=== PATIENT | female | born 1995 | race Caucasian/White ===

== ENCOUNTER 2016-12-28 10:46 | Emergency (ER) | payer BC ==
[~2016-12-28] VITALS: Ht 154.9 cm; Wt 66.3 kg
[2016-12-28 10:51] VITALS: TEMP 37.1; Ht 154.9 cm; Wt 66.3 kg
[2016-12-28] MEDS ORDERED: PRENTAB26 PO (11:18)
[2016-12-28] MEDS ORDERED: SODIUM CHLORIDE 0.9% 1000ML 1,000 ML IV STA (11:30)
--- NOTE | 2016-12-28 11:36 | EMERGENCY ROOM VISIT NOTE ---
History First contact with patient: 11:21 Chief Complaint: CONGESTION Stated Complaint: DIZZINESS,SWEATING,TROUBLE BREATHING,SINUS INFECTI Nursing Triage Summary: Sick since wednesday. 18 weeks . Sore throat, dry cough, chest feels heavy, "my head feels like I slammed it against the wall. I feel like Im going to pass out if I walk around too much." History of Present Illness The patient is a 21 year old female who presents to the Emergency Room with complaints of flulike symptoms. The patient's symptoms started 5 days ago. She initially had a sore throat. She has since developed headache, nonproductive cough, arthralgia, myalgia, ear pain, sinus congestion and minimal diarrhea. The patient rates her discomfort an 8/10. She was seen at urgent care the day before her symptoms started for an ear infection and was started on amoxicillin. She states that she has progressively felt worse every day. The patient's sister was recently diagnosed with pneumonia. The patient is currently 18 weeks . She is not certain if she has had a fever. She denies any neck pain or neck stiffness. She denies any chest pain or shortness of breath. She denies any abdominal pain, nausea or vomiting. She denies any urinary symptoms. She denies any vaginal bleeding. Review of Systems A 10 system review of systems was completed with positives and pertinent negatives listed in the HPI. Past Medical/Surgical History Patient denies Social History Smoking Status: Never Smoker Housing Status: lives with family Occupation Status: [employer] student Current/Historical Medications Scheduled Azithromycin (Zithromax Z-Fabrizio), 1 PKT PO UD Multivit/Min/Iron/Fol Ac/Pren ( Vitamin), 1 TAB PO DAILY Allergies Coded Allergies: No Known Allergies (Unverified , 12/28/16) Physical Exam Vital Signs Date Time Temp Pulse Resp B/P Pulse Ox O2 Delivery O2 Flow Rate FiO2 12/28/16 12:41 90 20 115/69 98 12/28/16 12:24 90 20 115/69 98 Room Air 12/28/16 10:54 98 Room Air 12/28/16 10:51 37.1 109 18 113/68 97 Room Air Physical Exam VITALS: Vitals are noted on the nurse's note and reviewed by myself. Vital signs stable. The patient is afebrile. GENERAL: This is a 21-year-old female, in no acute distress, nondiaphoretic, well-developed well-nourished. SKIN: The skin was without rashes, erythema, edema, or bruising. There is no tenting of the skin. Capillary reflex less than 2 seconds. HEAD: Normocephalic atraumatic. EARS: External auditory canals clear, tympanic membranes pearly bah without erythema or effusion bilaterally. EYES: Pupils equal round and reactive to light and accommodation. Conjunctivae without injection, sclerae without icterus. Extraocular movements intact. NOSE: There is clear discharge and mild inflammation of the turbinates. No sinus tenderness. MOUTH: Mucous membranes moist. Tonsils are not enlarged. Mild posterior pharyngeal erythema. Uvula midline. Airway patent. Tongue does not deviate. NECK: Supple without nuchal rigidity. No lymphadenopathy. No thyromegaly. Cervical spine is nontender. No JVD. HEART: Regular rate and rhythm without murmurs gallops or rubs. LUNGS: Clear to auscultation bilaterally without wheezes, rales or rhonchi. No retractions or accessory muscle use. ABDOMEN: Positive bowel sounds x 4. Soft, nontender, without masses or organomegaly. MUSCULOSKELETAL: No muscle atrophy, erythema, or edema noted. Full range of motion in all extremities. Normal gait. Strength 5/5 throughout. NEURO: Patient was alert and oriented to person place and time. No focal neurological deficits. Medical Decision & Procedures ER Provider Diagnostic Interpretation: [~ rep ct add3]] CHEST 2 VIEWS ROUTINE CLINICAL HISTORY: cough dyspnea COMPARISON STUDY: No previous studies for comparison. FINDINGS: Right middle lobe infiltrate. Lungs otherwise are clear. Diaphragms smooth. IMPRESSION: Right middle lobe infiltrate. Laboratory Results 12/28/16 11:45 Red Blood Count 3.89, Mean Corpuscular Volume 85.6, Mean Corpuscular Hemoglobin 30.6, Mean Corpuscular Hemoglobin Concent 35.7, Mean Platelet Volume 8.6, Neutrophils (%) (Auto) 75.2, Lymphocytes (%) (Auto) 16.2, Monocytes (%) (Auto) 7.7, Eosinophils (%) (Auto) 0.5, Basophils (%) (Auto) 0.1, Neutrophils # (Auto) 5.74, Lymphocytes # (Auto) 1.24, Monocytes # (Auto) 0.59, Eosinophils # (Auto) 0.04, Basophils # (Auto) 0.01 12/28/16 11:45 Test 12/28/16 11:40 12/28/16 11:45 Influenza Type A Antigen Neg for Influ A (NEG) Influenza Type B Antigen Neg for Influ B (NEG) White Blood Count 7.64 K/uL (4.8-10.8) Red Blood Count 3.89 M/uL (4.2-5.4) Hemoglobin 11.9 g/dL (12.0-16.0) Hematocrit 33.3 % (37-47) Mean Corpuscular Volume 85.6 fL (80-100) Mean Corpuscular Hemoglobin 30.6 pg (25-34) Mean Corpuscular Hemoglobin Concent 35.7 g/dl (32-36) Platelet Count 206 K/uL (130-400) Mean Platelet Volume 8.6 fL (7.4-10.4) Neutrophils (%) (Auto) 75.2 % Lymphocytes (%) (Auto) 16.2 % Monocytes (%) (Auto) 7.7 % Eosinophils (%) (Auto) 0.5 % Basophils (%) (Auto) 0.1 % Neutrophils # (Auto) 5.74 K/uL (1.4-6.5) Lymphocytes # (Auto) 1.24 K/uL (1.2-3.4) Monocytes # (Auto) 0.59 K/uL (0.11-0.59) Eosinophils # (Auto) 0.04 K/uL (0-0.5) Basophils # (Auto) 0.01 K/uL (0-0.2) RDW Standard Deviation 43.8 fL (36.4-46.3) RDW Coefficient of Variation 14.0 % (11.5-14.5) Immature Granulocyte % (Auto) 0.3 % Immature Granulocyte # (Auto) 0.02 K/uL (0.00-0.02) Urine Color YELLOW Urine Appearance CLOUDY (CLEAR) Urine pH 6.5 (4.5-7.5) Urine Specific [place] 1.013 (1.000-1.030) Urine Protein NEG (NEG) Urine Glucose (UA) NEG (NEG) Urine Ketones NEG (NEG) Urine Occult Blood TRACE (NEG) Urine Nitrite NEG (NEG) Urine Bilirubin NEG (NEG) Urine Urobilinogen NEG (NEG) Urine Leukocyte Esterase SMALL (NEG) Urine WBC (Auto) 5-10 /hpf (0-5) Urine RBC (Auto) 10-30 /hpf (0-4) Urine Hyaline Casts (Auto) 1-5 /lpf (0-5) Urine Epithelial Cells (Auto) >30 /lpf (0-5) Urine Bacteria (Auto) NEG (NEG) Anion Gap 15.0 mmol/L (3-11) Est Creatinine Clear Calc Drug Dose 150.7 ml/min Estimated GFR () > 150.0 Estimated GFR (Non- 136.5 BUN/Creatinine Ratio 10.2 (10-20) Calcium Level 8.4 mg/dl (8.5-10.1) Total Bilirubin 0.2 mg/dl (0.2-1) Aspartate Amino Transf (AST/SGOT) 21 U/L (15-37) Alanine Aminotransferase (ALT/SGPT) 20 U/L (12-78) Alkaline Phosphatase 77 U/L (45-117) Total Protein 6.9 gm/dl (6.4-8.2) Albumin 2.5 gm/dl (3.4-5.0) Globulin 4.4 gm/dl (2.5-4.0) Albumin/Globulin Ratio 0.6 (0.9-2) Monoscreen NEG (NEG) Medications Administered Medications (Trade) Dose Ordered Sig/Olivier Route Start Time Stop Time Status Last Admin Dose Admin Sodium Chloride (Nss 1000ml) 1,000 ml @ 999 mls/hr Q1H1M STAT IV 12/28/16 11:30 12/28/16 12:30 DC 12/28/16 11:30 999 MLS/HR ED Course The patient was seen and examined. Previous visits were reviewed. The patient does not have a fever or leukocytosis. She does have a mild anemia. She does not have any significant electrolyte abnormality. Her analysis suggests contamination. Granite was negative. Influenza was negative. Chest x-ray reveals a right middle lobe pneumonia The patient was hydrated with normal saline The patient appears to have a right middle lobe pneumonia. She is already taking amoxicillin for an ear infection but has developed a pneumonia. In consultation with the ED pharmacist, Wilner, the patient will be started on Zithromax. She should continue the amoxicillin as well as. She should continue Tylenol for pain/fever. She should return with any worsening symptoms , trouble breathing, high fever, abdominal pain. Otherwise, she should follow- up with her family doctor next week. The case was discussed with Dr. Shelby who agrees with the assessment and treatment plan Medical Decision DIFFERENTIAL DIAGNOSIS: Aortic dissection, myocarditis, pericarditis, cervical disc disease, costochondritis, herpes zoster, rib fracture, pleuritis, pneumonia , pulmonary embolus, tension pneumothorax, anxiety disorder, somatoform disorder , choledocholithiasis, status, esophagitis, esophageal spasm, esophageal reflux , esophageal rupture, pancreatitis, peptic ulcer disease, cardiac ischemia, ST elevation NM, acute coronary syndrome, arrhythmia, coronary artery vasospasm. vavular heart disease, coronary artery disease, among others. Impression Primary Impression: Pneumonia Departure Information Dispostion Home / Self-Care Condition GOOD Prescriptions Azithromycin (ZITHROMAX Z-FABRIZIO) 250 Mg Tab 1 PKT PO UD, #1 PKT Prov: Sylvia Parkinson PA-C 12/28/16 Referrals No Doctor, Assigned (PCP) Patient Instructions [facility] Additional Instructions Zithromax as prescribed ,until finished Continue the amoxicillin as prescribed Tylenol according to package instructions for pain/fever Return with worsening symptoms. Otherwise, follow up with your family doctor in 2-3 days Problem Qualifiers Primary Impression: Pneumonia Laterality: right Lung location: middle lobe of lung
[2016-12-28 12:02] LABS: HEMATOCRIT 33.3 % (37-47); MEAN CELL VOLUME 85.6 fL (80-100); MEAN CORPUSCULAR HEMOGLOBIN 30.6 pg (25-34); MEAN CORPUSCULAR HGB CONC 35.7 g/dl (32-36); MEAN PLATELET VOLUME 8.6 fL (7.4-10.4); PLATELET COUNT 206 K/uL (130-400); RED BLOOD COUNT 3.89 M/uL (4.2-5.4); WHITE BLOOD COUNT 7.64 K/uL (4.8-10.8)
[2016-12-28 12:09] LABS: URINE APPEARANCE CLOUDY (CLEAR); URINE BILIRUBIN NEG (NEG); URINE COLOR YELLOW; URINE EPITHELIAL CELL AUTO >30 /lpf (0-5); URINE NITRITE NEG (NEG); URINE PH 6.5 (4.5-7.5); URINE SPECIFIC GRAVITY 1.013 (1.000-1.030); UROBILINOGEN NEG (NEG); ZZUR CULT IF INDIC CLEAN CATCH NO
[2016-12-28 12:12] LABS: MANUAL MICROSCOPIC REQUIRED? NO; REVIEW REQ? NO
[2016-12-28 12:19] LABS: ALT/SGPT 20 U/L (12-78); BLOOD UREA NITROGEN 5 mg/dl (7-18); BUN/CREATININE RATIO 10.2 (10-20); CALCIUM 8.4 mg/dl (8.5-10.1); CARBON DIOXIDE 17 mmol/L (21-32); CHLORIDE 102 mmol/L (98-107); CREATININE 0.51 mg/dl (0.60-1.20); GLUCOSE 82 mg/dl (70-99); POTASSIUM 3.8 mmol/L (3.5-5.1); SODIUM 134 mmol/L (136-145)
--- NOTE | 2016-12-28 12:20 | DIAGNOSTIC IMAGING REPORT ---
CHEST 2 VIEWS ROUTINE CLINICAL HISTORY: cough dyspnea COMPARISON STUDY: No previous studies for comparison. FINDINGS: Right middle lobe infiltrate. Lungs otherwise are clear. Diaphragms smooth. IMPRESSION: Right middle lobe infiltrate. Electronically signed by: Winston Tom M.D. 12/28/2016 12:19 PM Dictated Date/Time: 12/28/2016 12:18 PM
[2016-12-28 12:22] LABS: ALB/GLOB RATIO 0.6 (0.9-2); ALKALINE PHOSPHATASE 77 U/L (45-117); AST/SGOT 21 U/L (15-37)
[2016-12-28 12:25] LABS: BASO % 0.1 %; BASO ABS # 0.01 K/uL (0-0.2); COMPLETE YES; EOS % 0.5 %; IG% 0.3 %; LYMPH % 16.2 %; LYMPH ABS # 1.24 K/uL (1.2-3.4); MONO % 7.7 %; NEUT % 75.2 %
[2016-12-28] MEDS ORDERED: AZITTAB PO (12:40)
[2016-12-28 12:41] VITALS: BP 115/69; PULSE 90; O2SAT 98
== END 2016-12-28 13:04 | disposition home or self-care (01) ==
LOC: C.EDB 10:49 → C.EDC 13:04
DX: O99.89 Other specified diseases and conditions complicating pregnancy, childbirth and the puerperium (principal); J18.9 Pneumonia, unspecified organism; Z3A.18 18 weeks gestation of pregnancy; D64.9 Anemia, unspecified